=== PATIENT | female | born 1985 | race Caucasian/White ===

== ENCOUNTER 2017-12-05 19:26 | Emergency (ER) | payer OTHER ==
[2017-12-05] MEDS: KETOROLAC 60 MG INJ IM (21:03)
== END 2017-12-05 22:06 | disposition home or self-care (01) ==
LOC: FTE 19:26
DX: M54.9 Dorsalgia, unspecified (principal); J45.909 Unspecified asthma, uncomplicated
CPT/HCPCS: 81025; 96372; 99284-25